=== PATIENT | male | born 1990 | race Hispanic/Latino ===

== ENCOUNTER 2018-03-08 20:21 | Emergency (ER) | payer SELFPAY ==
[2018-03-08] MEDS ORDERED: SODIUM CHLORIDE 0.9% 1000ML 1,000 ML IVS ONE (20:48)
[2018-03-08] MEDS ORDERED: KETOROLAC TROMETHAMINE INJ 30 MG/ML VIAL IV ONE (20:48)
[2018-03-08 20:49] VITALS: TEMP 99.1
--- NOTE | 2018-03-08 20:51 | ED.PDOC ---
History of Present Illness - General Chief Complaint: Problem Stated Complaint: lower back pain radiating to abdomen Time Seen by Provider: 03/08/18 20:37 Source: patient, family Exam Limitations: no limitations - History of Present Illness Initial Comments: patient comes in today secondary to back pain. Patient states for the past month he's had intermittent bouts of sharp chest pain in his back that radiates around to his stomach. Patient states at times the pain is so severe that he can't catch his breath. Patient stated that today the pain restarted and it was a 9 out of 10 prior to arrival. He denies any injury or trauma. 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 Patient was concerned that it might be his kidneys. Patient has had some nausea with the severity of the back pain. He denies any fever, chills, cough or cold symptoms. He has no chest pain. He has no dysuria, hematuria, or increased urinary frequency. However, he has noted that his urine has gotten very dark. Patient has a past medical history of diabetes mellitus. Patient was originally started on insulin about a year ago but the medicine made him feel ill and he stopped on its own. He has lost about 100 pounds since then and seems to be doing much better. He was also told he had hypertension but is not currently taking medication for this as it was also making him feel ill when he was working outside. Patient has had some hard stools and he states his last bowel movement was yesterday. No diarrhea no blood in his bowel movements. Timing/Duration: this morning Quality: severe, sharpness Onset Location: right flank Radiation: RLQ Activites at Onset: none Prior abdominal problems: none Improving Factors: nothing Worsening Factors: movement Associated Symptoms: other - shortness of breath with worsening of pain Allergies/Adverse Reactions: Allergies NO KNOWN ALLERGY Allergy (Verified 03/08/18 20:49) Home Medications: Ambulatory Orders Cyclobenzaprine HCl [Flexeril] 10 mg PO TID #21 tab 03/08/18 Review of Systems - Review of Systems Constitutional: States: no symptoms reported. Denies: chills, diaphoresis, fever EENTM: States: no symptoms reported. Denies: eye pain, nose pain, throat pain, other Respiratory: States: short of breath - with severe pain only. Denies: cough Cardiology: States: no symptoms reported. Denies: chest pain, palpitations Gastrointestinal/Abdominal: States: see HPI, abdominal pain Genitourinary: States: see HPI, other - darkening of urine. Denies: dysuria, frequency, hematuria Musculoskeletal: States: back pain Skin: States: no symptoms reported Past Medical History (General) - Patient Medical History Hx Hypertension: Yes Hx Diabetes: Yes Family Medical History - Family History Mother Family History: Unknown Physical Exam - Physical Exam General Appearance: Alert, No apparent distress Eyes, Ears, Nose, Throat Exam: PERRL/EOMI, normal ENT inspection, TMs normal Neck: non-tender, full range of motion, supple, normal inspection Cardiovascular/Respiratory: regular rate, rhythm, no M/R/G, normal peripheral pulses, no JVD, normal breath sounds Gastrointestinal/Abdominal: normal bowel sounds, soft, tenderness - mild tenderness to palpation suprapubically Back Exam: normal inspection, no CVA tenderness, other - TTP R paraspinal muscles Extremity: normal range of motion, non-tender, normal inspection Neurologic: alert, oriented x 3 Progress - Progress Progress: 03/08/18 22:28 Discussed results with patient. No signs of intrabdominal abnormalities. Most likely muscleskeletal. trigger point injected on right paraspinal muscle spasm with 1 cc of lidocaine with improvement of pain. Patient to use heat to area, flexeril with sedation precautions given, and he should follow up with PCP for back pain and to treat his diabetes in 4-5 days. Return to Er for intractable pain - Results/Orders Results/Orders: Patient Name: CYNDIE CABRALES Gender: Male Date of : 1990 Referring Physician: JANEEN ANAYA Organization: [facility] Accession Number: [id number] Requested Date: March 08, 2018 21:14 Report Status: Final Requested Procedure: 1 Procedure Description: Abdoment/Pelvis w/o Contrast Modality: CT Findings Reporting MD: Tito Lund Fellow MD: Not available Dictation Time: Parts Chaser: Not available Technology And Engineering Teacher Date: EXAM DESCRIPTION: Abdoment/Pelvis w/o Contrast CLINICAL HISTORY: pain abnormal KUB COMPARISON: None Available. TECHNIQUE: Contiguous axial images of the abdomen and pelvis were obtained followed by reconstruction images. This exam was performed according to our departmental dose-optimization program, which includes automated exposure control, adjustment of the mA and/or kV according to patient size and/or use of iterative reconstruction technique. FINDINGS: The liver, spleen, pancreas and kidneys are within normal limits. There is no hydronephrosis or renal stones. The gallbladder is unremarkable by CT criteria. Adrenal glands are within normal limits. Aorta is of normal caliber and tapering. There is no free fluid in the abdomen or pelvis. There is no bowel obstruction. There is no stranding of the mesenteric fat to suggest an inflammatory response. The appendix is within normal limits. There is no pericecal inflammation. IMPRESSION: No acute intra-abdominal abnormality. Electronically signed by: Tito Lund 03/08/2018 9:41 PM DIESEL RETROFIT DESIGNER Departure - Departure Clinical Impression: Muscle spasm Disposition: Discharge to Home or Self Care Condition: Good Departure Forms: ED Discharge - Pt. Copy, Patient Portal Self Enrollment Diet: diabetic diet Prescriptions: Cyclobenzaprine HCl [Flexeril] 10 mg PO TID #21 tab Home Medications: Ambulatory Orders Cyclobenzaprine HCl [Flexeril] 10 mg PO TID #21 tab 03/08/18 Additional Instructions: use heat to area, flexeril with sedation precautions given, and he should follow up with PCP for back pain and to treat his diabetes in 4-5 days. Return to Er for intractable pain
--- NOTE | 2018-03-08 21:10 | RAD ---
EXAM DESCRIPTION: KUB CLINICAL HISTORY: 27-year-old male. Pain. COMPARISON: None FINDINGS: Single supine view of the abdomen. Nonobstructive bowel gas pattern. Nonspecific focally air-filled and distended loop of bowel projecting in the pelvis measuring 6.9 cm, presumed to represent the sigmoid colon. No unexpected intra-abdominal radiopaque density. No finding to suggest free intraperitoneal air in this single supine view. Osseous structures are without acute finding. IMPRESSION: Nonspecific focal distention of a bowel loop projecting in the pelvis presumed to represent the sigmoid colon. Underlying infectious/inflammatory process not excluded. Additional imaging abdomen and pelvis CT is recommended. Electronically signed by: Ella Mittal MD 03/08/2018 9:09 PM METAL ROASTER
--- NOTE | 2018-03-08 21:42 | CT ---
EXAM DESCRIPTION: Abdoment/Pelvis w/o Contrast CLINICAL HISTORY: pain abnormal KUB COMPARISON: None Available. TECHNIQUE: Contiguous axial images of the abdomen and pelvis were obtained followed by reconstruction images. This exam was performed according to our departmental dose-optimization program, which includes automated exposure control, adjustment of the mA and/or kV according to patient size and/or use of iterative reconstruction technique. FINDINGS: The liver, spleen, pancreas and kidneys are within normal limits. There is no hydronephrosis or renal stones. The gallbladder is unremarkable by CT criteria. Adrenal glands are within normal limits. Aorta is of normal caliber and tapering. There is no free fluid in the abdomen or pelvis. There is no bowel obstruction. There is no stranding of the mesenteric fat to suggest an inflammatory response. The appendix is within normal limits. There is no pericecal inflammation. IMPRESSION: No acute intra-abdominal abnormality. Electronically signed by: Tito Lund 03/08/2018 9:41 PM MUSIC COMPOSER
[2018-03-08] MEDS ORDERED: CYCLOBENZAPRINE HCL 10 MG TAB PO ONE (22:27)
[2018-03-08 22:41] VITALS: BP 151/90; O2SAT 99
== END 2018-03-08 22:44 | disposition home or self-care (01) ==
LOC: ER 20:21
DX: M62.830 Muscle spasm of back (principal); R11.0 Nausea; E11.9 Type 2 diabetes mellitus without complications; I10 Essential (primary) hypertension
CPT/HCPCS: 74018; 74176; 80053; 81001; 82550; 85025; J1885; J7030